=== PATIENT | female | born 1975 | race Asian ===

== ENCOUNTER 2018-09-22 16:07 | Outpatient (CLI) | payer BC | END 2018-09-22 16:08 | disposition home or self-care (01) | LOC: BICMAMMO 16:07 | PROVIDERS: ATTEND Family Medicine | DX: Z12.31 Encounter for screening mammogram for malignant neoplasm of breast (principal) | CPT/HCPCS: 77063; 77067 ==

== ENCOUNTER 2022-06-17 12:16 | Outpatient (CLI) | payer BC | END 2022-06-17 12:17 | disposition home or self-care (01) | LOC: SCSRAD 12:16 | PROVIDERS: ATTEND Family Medicine | DX: M54.50 Low back pain, unspecified (principal); G89.29 Other chronic pain | CPT/HCPCS: 72100; 87086 ==

== ENCOUNTER 2022-12-03 07:48 | Outpatient (CLI) | payer BC | END 2022-12-03 07:49 | disposition home or self-care (01) | LOC: BICULT 07:48 | PROVIDERS: ATTEND Family Medicine | DX: N63.10 Unspecified lump in the right breast, unspecified quadrant (principal) ==